=== PATIENT | female | born 1950 | race Caucasian/White ===

== ENCOUNTER → 2024-02-11 09:00 | Outpatient (REF) | payer BC, OTHER, SELFPAY | LOC: HWRAD 09:00 | PROVIDERS: ATTENDING PHYSICIAN Physician Assistant Medical | DX: M16.10 Unilateral primary osteoarthritis, unspecified hip (principal) | CPT/HCPCS: 73502 ==

== ENCOUNTER 2024-11-04 08:19 | Emergency (ER) | payer BC, SELFPAY ==
[2024-11-04 08:28] VITALS: BP 137/86
[2024-11-04 08:46] LABS: % Basophils 0.2 % (0-2); % Eosinophils 0.2 % (0-6); % Immature Granulocytes 0.4 % (0-0.5); % Lymphocytes 9.5 % (20.5-51.1); % Monocytes 5.5 % (1.7-9.3); % Neutrophils 84.2 % (42.2-75.2); Absolute Immature Granulocytes 0.1 10^3/uL (0-0.05); Absolute Lymphocytes 1.1 10^3/uL (1.2-3.4); Absolute Monocytes 0.6 10^3/uL (0.1-0.6); Absolute Neutrophils 9.7 10^3/uL (1.4-6.5); Hematocrit 36.6 % (37.0-47.0); Hemoglobin 12.6 g/dL (12.0-16.0); Mean Corp Hgb Conc. 34.4 g/dL (33.0-37.0); Mean Corpuscular Hgb 30.4 pg (27.0-31.0); Mean Corpuscular Volume 88.4 fL (81.0-99.0); Mean Platelet Volume 9.2 fL (7.4-10.4); Nucleated Red Blood Cells % 0 %; Platelet Count 252 10^3/uL (130-400); Red Blood Cell Count 4.14 10^6/uL (4.20-5.40); Red Cell Dist. Width 12.2 % (11.5-14.5); White Blood Cell Count 11.5 10^3/uL (4.8-10.8)
[2024-11-04 09:02] LABS: ALT (SGPT) 19 U/L (0-35); AST (SGOT) 24 U/L (14-36); Albumin 4.3 g/dl (3.5-5.0); Alkaline Phosphatase 62 U/L (38-126); Blood Urea Nitrogen 18 mg/dl (7-17); Calcium 9.2 mg/dl (8.4-10.2); Carbon Dioxide 25 mmol/L (22-30); Chloride 100 mmol/L (98-107); Glucose 130 mg/dl (70-99); Lipase 95 U/L (23-300); Potassium 3.7 mmol/L (3.5-5.1); Sodium 135 mmol/L (135-145); Total Bilirubin 1.1 mg/dl (0.2-1.3); Total Protein 6.6 g/dl (6.3-8.2); eGFR 59.49
--- NOTE | 2024-11-04 10:25 | ED.GENMED ---
History of Present Illness
General
Chief Complaint: Abdominal Pain
Source: patient
Exam Limitations: none
Time Seen by Provider: 11/04/24 10:14
Nursing documentation reviewed up to this point in time: agreed with
History of Present Illness
History of Present Illness:
74-year-old female past medical history of hypertension GERD presenting to the emergency department today with concerns of left lower quadrant abdominal pain starting yesterday with somewhat more diffuse yesterday but now localized mainly to the
left lower quadrant no associated changes in bowel movements. Does have some nausea no vomiting some mild lightheadedness. No urinary symptoms. Denies similar symptoms in the past.
Past History
Past History
ED Past Medical History: HTN
ED Past Surgical History:
Social History
Tobacco: Non-smoker
Alcohol: Occasional
Personal:
Living: with roommate
Family History
Family History: CAD
Review of Systems
Review of Systems
Allergies reviewed?: Yes
All Other Systems: ROS reviewed and negative except as documented in HPI and ROS
Phy Exam
Physical Exam
Physical Exam:
GENERAL: Alert , in no apparent distress
EYE: pupils equal and reactive
NECK: Supple, no significant adenopathy.
ENT: o/p clr, mmm.
CARDIAC: Regular rate and rhythm .
LUNGS: Clear breath sounds bilaterally, no acute respiratory distress, no wheezes/rales/rhonchi
ABDOMEN: Tenderness palpation to the left lower quadrant
NEUROLOGICAL: Alert and oriented, no focal neuro deficits
SKIN: Warm and dry, skin intact.
MUSCULOSKELETAL: No edema, well perfused.
PSYCH: Normal and appropriate interaction.
Course
Orders/Labs/Results
Orders:
Orders
11/04/24 08:36
Complete Blood Count/With Diff Urgent
Comprehensive Metabolic Panel Urgent
Lipase Urgent
11/04/24 10:25
CT Abd/Pel (IV only)-DH only Urgent
Comment:
Reason For Exam: llq pain
11/04/24 11:12
Urinalysis Reflex To Culture Urgent
Date Specimen was Collected: 11/04/24
Time Specimen was Collected: 11:11
11/04/24 12:24
Amoxicillin 875 mg/Clav 125 mg [Augmentin 875 mg/125 mg] 1 tablet PO NOW STA
Ketorolac [Toradol] 15 mg IV NOW STA
Abnormal Lab Results
11/04/24
08:36
WBC 11.5 H 10^3/uL
(4.8-10.8)
RBC 4.14 L 10^6/uL
(4.20-5.40)
Hct 36.6 L %
(37.0-47.0)
Abs Immat Gran (auto) 0.1 H 10^3/uL
(0-0.05)
Absolute Neuts (auto) 9.7 H 10^3/uL
(1.4-6.5)
Absolute Lymphs (auto) 1.1 L 10^3/uL
(1.2-3.4)
Neutrophils % 84.2 H %
(42.2-75.2)
Lymphocytes % 9.5 L %
(20.5-51.1)
BUN 18 H mg/dl
(7-17)
Glucose 130 H mg/dl
(70-99)
11/04/24 08:36
11/04/24 08:36
Vital Signs
Initial and Last Documented VS:
Initial Vital Signs
Temp Pulse Resp BP Pulse Ox
98.7 F 85 18 137/86 98
11/04/24 08:28 11/04/24 08:28 11/04/24 08:28 11/04/24 08:28 11/04/24 08:28
Last Documented Vital Signs
Temp Pulse Resp BP Pulse Ox
98.7 F 78 16 114/75 97
11/04/24 08:28 11/04/24 10:34 11/04/24 10:34 11/04/24 11:21 11/04/24 11:21
MDM/Problems Addressed
MDM/Problems Addressed:
74-year-old female presenting with concerns of left lower quadrant abdominal pain. Starting last night. Vital signs normal on arrival reproducible pain to left lower quadrant plan for CT scan for further assessment. CT scan showing uncomplicated
diverticulitis. Patient will be started on antibiotics otherwise advised for close outpatient follow-up. Does have a GI doctor. Return precautions given.
*Critical Care Note
Total Time (30-74mins, 75-104mins- exclusive of procedures): Not Applicable
ED Attending Note
-
Portions of this chart may have been created with voice recognition software.� Occasional wrong word or��sound alike� substitutions may have occurred due to the inherent limitations of voice recognition software.
Discharge Plan
Departure
Patient Disposition: Home (Routine Discharge)
Date of Disposition: 11/04/24
Time of Disposition: 12:25
Patient with high blood pressure during this ER visit?: No
Condition: Good
Covid-19: Not Applicable
Discharge Problem:
Diverticulitis
Instructions: Diverticulitis (DC)
Prescriptions:
New
amoxicillin-pot clavulanate 875-125 mg tablet
1 tab PO BID 7 Days Qty: 14 0RF
No Action
lansoprazole 15 MG tablet,disintegrat, delay rel
30 mg PO DAILY
losartan 100 MG tablet
100 mg PO DAILY
levothyroxine 50 mcg Tablet
50 mcg PO DAILY
hydrochlorothiazide 12.5 mg Tablet
12.5 mg PO DAILY
Referrals:
Renato Davila PA-C [Family Provider] -
Activity Restrictions/Additional Instructions:
You came to the emergency department today with concerns of left lower quadrant abdominal pain. You are found to have diverticulitis. Please take the prescribed antibiotic and follow-up closely with your GI doctor and primary care doctor. Return
for any worsening, new or concerning symptoms.
Interventions
Interventions:
*Risk Screen - Suicide Last Done: 11/04/24 08:28
*General Assessment Last Done: 11/04/24 08:28
*Neglect/Abuse Screening Last Done: 11/04/24 08:28
EE-Atoiiu-Qtlxcvkufz Assessment Last Done: 11/04/24 10:28
Discharge Date and Time
Print Language: BURMESE
[2024-11-04 10:26] VITALS: BMI 32.6
[2024-11-04 10:34] VITALS: BP 146/87
[2024-11-04 11:21] VITALS: BP 114/75
[2024-11-04 11:27] LABS: Urine Albumin Negative (Neg - Trace); Urine Bilirubin Negative (Negative); Urine Character Clear (Clear); Urine Color Yellow; Urine Glucose Negative (Negative); Urine Ketone Negative (Negative); Urine Leukocyte Negative (Negative); Urine Nitrite Negative (Negative); Urine Occult Blood Negative (Negative); Urine Specific Gravity 1.005 (<1.030); Urine Urobilinogen Negative (Neg - 1+)
[2024-11-04] MEDS: AUGMENTIN 875 MG/125 MG 1 TABLET PO (12:35)
[2024-11-04] MEDS: TORADOL 15 MG IV (12:37)
[2024-11-04 12:59] VITALS: BP 134/84
== END 2024-11-04 13:03 | disposition home or self-care (01) ==
LOC: EMR 08:19
PROVIDERS: Emergency Medicine; Physician Assistant; EMERGENCY PHYSICIAN Student in an Organized Health Care Education/Training Program; FAMILY PHYSICIAN Physician Assistant Medical
DX: K57.32 Diverticulitis of large intestine without perforation or abscess without bleeding (principal); I10 Essential (primary) hypertension; K21.9 Gastro-esophageal reflux disease without esophagitis; Z82.49 Family history of ischemic heart disease and other diseases of the circulatory system
CPT/HCPCS: 99284; 96374; 74177; 80053; 81003; 83690; 85025; Q9967

== ENCOUNTER 2025-10-05 06:29 | Day surgery (SDC) | payer OTHER, SELFPAY | END 2025-10-05 08:27 | disposition home or self-care (01) | LOC: GI 06:29 | PROVIDERS: ATTENDING PHYSICIAN Internal Medicine | DX: Z12.11 Encounter for screening for malignant neoplasm of colon (principal); D12.4 Benign neoplasm of descending colon; D12.5 Benign neoplasm of sigmoid colon; K57.30 Diverticulosis of large intestine without perforation or abscess without bleeding; K64.9 Unspecified hemorrhoids; Z86.0101 Personal history of adenomatous and serrated colon polyps | CPT/HCPCS: 45385; 88305 ==